=== PATIENT | female | born 1995 ===

== ENCOUNTER 2017-12-02 09:03 | Emergency (ER) | payer OTHER ==
[2017-12-02 09:12] VITALS: RESP 18; TEMP 97.9; O2SAT 100
[2017-12-02] MEDS ORDERED: Sodium Chloride 0.9% 1,000 ML IV ONE (09:26)
--- NOTE | 2017-12-02 09:35 | C.PDOC ---
History Of Present Illness Patient BIBA for evaluation of "auras" and decreased sleep for approx 1 month. Patient has PMhx of seizure disorder, currently on Keppra and Vimpat. Patient states she is compliant with medications, last seizure was approx 2 years ago; neurologist is Dr. Gutierrez. Patient is unable to describe the quality of the auras , just states ithat it is how she feels prior to having seizures. 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 PMHx - seizure disorder, hypothyroidism, asthma Time Seen by Provider: 12/02/17 09:12 Chief Complaint (Nursing): Medical Clearance History Per: Patient, Family (mother at bedside ) History/Exam Limitations: no limitations Onset/Duration Of Symptoms: Days (approx 1 month) Current Symptoms Are (Timing): Still Present Severity: Mild Past Medical History Reviewed: Historical Data, Nursing Documentation Vital Signs: Last Vital Signs Temp 97.9 F 12/02/17 09:08 Pulse 62 12/02/17 10:48 Resp 18 12/02/17 10:48 BP 102/59 L 12/02/17 10:48 Pulse Ox 100 12/02/17 10:48 - Medical History PMH: Asthma, Hypothyroidism, Seizures Family History: States: No Known Family Hx - Social History Hx Tobacco Use: No Hx Alcohol Use: No Hx Substance Use: No - Immunization History Hx Tetanus Toxoid Vaccination: Yes Hx Influenza Vaccination: No Hx Pneumococcal Vaccination: No Review Of Systems Constitutional: Negative for: Fever, Chills Cardiovascular: Negative for: Chest Pain, Palpitations Respiratory: Negative for: Cough, Shortness of Breath Neurological: Positive for: Other ("auras", decreased sleep). Negative for: Weakness, Numbness, Incoordination, Change in Speech, Confusion, Seizures, Altered Mental Status, Headache, Dizziness Physical Exam - Physical Exam Appears: Well, Non-toxic, No Acute Distress, Other (anxious appearing ) Skin: Warm, Dry Head: Atraumatic, Normacephalic Eye(s): bilateral: Normal Inspection, PERRL, EOMI Oral Mucosa: Moist Cardiovascular: Rhythm Regular Respiratory: Normal Breath Sounds, No Rales, No Rhonchi, No Wheezing Gastrointestinal/Abdominal: Normal Exam, Bowel Sounds, Soft, No Tenderness Neurological/Psych: Oriented x3, Normal Speech ED Course And Treatment - Laboratory Results Result Diagrams: 12/02/17 09:44 12/02/17 09:51 O2 Sat by Pulse Oximetry: 100 Progress Note: Blood work, UA, Upreg ordered and reviewed. Patient given IV NS bolus. Reevaluation Time: 10:40 Reassessment Condition: Improved (Patient resting comfortably, in no pain or distress. No seizures in ED. Blood work, UA, UPreg unremarkable. Patient is well appearing and comfortable being discharged home. Symptoms likely due to increased stress, currently boarding at [employer]. She was instructed to continue her medications and follow up with her neurologist within 1 week. She understands she should retun to ED if symptoms worsen/ return.) Disposition Counseled Patient/Family Regarding: Studies Performed, Diagnosis, Need For Followup - Disposition Referrals: Marjan Donohue MD [Non-Staff] - Disposition: HOME/ ROUTINE Disposition Time: 10:40 Condition: STABLE Additional Instructions: FOLLOW UP WITH YOUR NEUROLOGIST DR GUTIERREZ WITHIN 1 WEEK RETURN TO ER IF YOU HAVE ANY CONCERNING SYMPTOMS Forms: General Discharge Instructions, [facility] ([place]), School Excuse Print Language: SLOVAK - POA Present On Arrival: None - Clinical Impression Clinical Impression: Medical assessment, Stress
[2017-12-02] MEDS ORDERED: Sodium Chloride 0.9% 1,000 ML ONE (09:42)
[2017-12-02 09:46] LABS: NRBC % 0.1 % (0.0-2.0)
[2017-12-02 09:48] LABS: BASO % 0.7 % (0.0-2.0); EOS # 0.7 K/uL (0.0-0.7); EOS % 14.7 % (0.0-4.0); LYMPH # 1.3 K/uL (1.0-4.3); LYMPH % 27.1 % (20.0-40.0); MEAN CELL VOLUME 90.3 fL (81.0-99.0); MEAN CORPUSCULAR HEMOGLOBIN 31.1 pg (27.0-31.0); MEAN CORPUSCULAR HGB CONC 34.5 g/dL (33.0-37.0); MEAN PLATELET VOLUME 8.6 fL (7.2-11.7); MONO # 0.3 K/uL (0.0-0.8); MONO % 6.3 % (0.0-10.0); NEUT # 2.5 K/uL (1.8-7.0); NEUT % 51.2 % (50.0-75.0); RBC 4.18 Mil/uL (3.80-5.20); RED CELL DISTRIBUTION WIDTH 15.8 % (11.5-14.5); WHITE BLOOD COUNT 4.9 K/uL (4.8-10.8)
[2017-12-02 10:02] LABS: ALB/GLOB RATIO 1.4 (1.0-2.1); ALBUMIN 4.2 g/dL (3.5-5.0); ALT/SGPT 64 U/L (9-52); AST/SGOT 32 U/L (14-36); BLOOD UREA NITROGEN 9 mg/dL (7-17); CALCIUM 9.3 mg/dl (8.6-10.4); GFR AFRICAN-AMERICAN > 60; GFR NON-AFRICAN AMERICAN > 60
[2017-12-02 10:20] LABS: HCG,QUALITATIVE URINE NEGATIVE (NEGATIVE)
[2017-12-02 10:28] LABS: SQUAMOUS EPITHIAL 11 /hpf (0-5); URINE BACTERIA RARE (<OCC); URINE BILIRUBIN NEGATIVE (NEGATIVE); URINE BLOOD NEGATIVE (NEGATIVE); URINE CLARITY Hazy (Clear); URINE COLOR Yellow (YELLOW); URINE GLUCOSE (UA) NORMAL (Normal); URINE LEUKOCYTE ESTERASE TRACE Leu/uL (Negative); URINE PROTEIN NEGATIVE (NEGATIVE); URINE UROBILINOGEN NORMAL mg/dL (0.2-1.0)
[2017-12-02 10:50] VITALS: BP 102/59; PULSE 62
== END 2017-12-02 11:15 | disposition home or self-care (01) ==
LOC: C.ER 09:03
DX: F43.9 Reaction to severe stress, unspecified (principal)